=== PATIENT | female | born 1965 | race Caucasian/White ===

== ENCOUNTER 2019-04-14 19:12 | Emergency (ER) | payer BC ==
[2019-04-14] MEDS ORDERED: Baclofen 10 MG Tab PO ONE (20:17)
[2019-04-14] MEDS ORDERED: Acetaminophen/oxyCODONE 325-5 MG Tab PO ONE (20:17)
[2019-04-14] MEDS ORDERED: Ketorolac 60 MG/2 ML SDV IM ONE (20:17)
[2019-04-14] MEDS ORDERED: HYDROmorphone 1 MG/ML Syringe IM ONE (21:10)
--- NOTE | 2019-04-14 21:52 | EDM.PDOC ---
ED HPI GENERAL MEDICAL PROBLEM - General Chief Complaint: Back Pain or Injury Stated Complaint: BACK PAIN AND RIGHT LEG Time Seen by Provider: 04/14/19 19:40 Source of Information: Reports: Patient History Limitations: Reports: No Limitations - History of Present Illness INITIAL COMMENTS - FREE TEXT/NARRATIVE: pt arrived with severe [pain in the lower back with pain radiating down the rt leg. She is having severe muscle spasms in the leg. She has not been able to get comfortable. She did not have a definite injury. Onset: Gradual, Other ( last several days) Duration: Day(s): Location: Reports: Back, Lower Extremity, Right Associated Symptoms: Reports: No Other Symptoms - Related Data Allergies Allergy/AdvReac Type Severity Reaction Status Date / Time adhesive tape Allergy Hives Verified 04/14/19 19:37 Home Meds: Home Meds Hydrochlorothiazide [Microzide] 12.5 mg PO DAILY 04/14/19 [History] Metoprolol Succinate [Toprol Xl] 200 mg PO DAILY 04/14/19 [History] Rosuvastatin [Crestor] 10 mg PO BEDTIME 04/14/19 [History] amLODIPine [Norvasc] 5 mg PO DAILY 04/14/19 [History] metFORMIN [Glucophage] 500 mg PO BID 04/14/19 [History] Past Medical History Genitourinary History: Reports: Renal Calculus 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: Reports: - Past Surgical History Female Surgical History: Reports: Section, Ureteral Stent Oncologic Surgical History: Reports: Biopsy of Breast Social & Family History - Tobacco Use Smoking Status *Q: Never Smoker - Recreational Drug Use Recreational Drug Use: No ED ROS GENERAL - Review of Systems Review Of Systems: See Below Constitutional: Reports: No Symptoms HEENT: Reports: No Symptoms Respiratory: Reports: No Symptoms Cardiovascular: Reports: No Symptoms Endocrine: Reports: No Symptoms GI/Abdominal: Reports: No Symptoms : Reports: No Symptoms Skin: Reports: Other ( severe pain in the rt lower lumbar area. The pain comes over the buttock and then moves forward on the thigh. She is having alot of spasm in the thigh. ) Neurological: Reports: Other ( tingling is present. ) Psychiatric: Reports: Anxiety ED EXAM,LOWER BACK PAIN/INJURY - Physical Exam Exam: See Below Text/Narrative:: pt arrived very uncomfortable with severe pain in the rt lower back radiating down the rt leg. She is having severe muscle spam Exam Limited By: No Limitations General Appearance: Alert, Anxious Ears: Normal TMs Nose: Normal Inspection Throat/Mouth: Normal Inspection Head: Atraumatic Neck: Normal Inspection Respiratory/Chest: No Respiratory Distress Cardiovascular: Regular Rate, Rhythm GI/Abdominal: Soft, Non-Tender (Female) Exam: Deferred Rectal (Female) Exam: Deferred Back Exam: Normal Inspection Extremities: Other (pain is radiating down the rt buttock and then it moves forward to the front of the thigh. She is having severe muscle spasms. She has a positive straight leg raising sign. She has a very good pulse. She has normal great toe strenghth. ) Neurological: Alert Psychiatric: Anxious Course - Vital Signs Last Recorded V/S: Last Vital Signs Temp 36.9 C 04/14/19 19:38 Pulse 85 04/14/19 19:38 Resp 16 04/14/19 19:38 BP 177/86 H 04/14/19 19:38 Pulse Ox 95 04/14/19 19:38 - Orders/Labs/Meds Meds: Medications Discontinued Medications Generic Name Dose Route Start Last Admin Trade Name Rafaelq PRN Reason Stop Dose Admin Baclofen 10 mg 04/14/19 20:17 04/14/19 20:24 Lioresal PO 04/14/19 20:18 10 mg ONETIME ONE Administration Hydromorphone HCl 1 mg 04/14/19 21:10 04/14/19 21:16 Dilaudid IM 04/14/19 21:11 1 mg ONETIME ONE Administration Ketorolac Tromethamine 60 mg 04/14/19 20:17 04/14/19 20:24 Toradol IM 04/14/19 20:18 60 mg ONETIME ONE Administration Oxycodone/Acetaminophen 1 tab 04/14/19 20:17 04/14/19 20:24 Percocet 325-5 Mg PO 04/14/19 20:18 1 tab ONETIME ONE Administration - Re-Assessments/Exams Free Text/Narrative Re-Assessment/Exam: 04/14/19 22:02 pt was given torodol 60mg im, percocet 5/325 and dilaudid 1 mg im, She was given baclofeen 10mg . Pt is much mor relaxed and comfortable. Departure - Departure Time of Disposition: 21:50 Disposition: Home, Self-Care 01 Clinical Impression: Lumbar back pain with radiculopathy affecting right lower extremity - Discharge Information Referrals: Hortencia Becerril MD [Primary Care Provider] - Forms: ED Department Discharge Care Plan Goals: ice or heat to the area, cool packto the areaover the buttock, rtc for a MRI of the luumbar spine, beclofen 10 mg tid for muscle relaxation, percocet 5.325 q6h prn for severe pain #12 , motrin 600mg tid, with the use of the percocet constipation can occur-- use prunes and miralax to avoid constipation.
== END 2019-04-14 22:26 | disposition home or self-care (01) ==
LOC: JP.ED 19:12
DX: M54.16 Radiculopathy, lumbar region (principal); Z79.84 Long term (current) use of oral hypoglycemic drugs; Z91.09 Other allergy status, other than to drugs and biological substances
CPT/HCPCS: 96372; 99282; A9270; J1170; J1885

== ENCOUNTER 2022-10-13 16:27 | Emergency (ER) | payer BC ==
[2022-10-13] MEDS ORDERED: Metoclopramide 10 MG/2 ML SDV IVPUSH ONE (17:14)
[2022-10-13] MEDS ORDERED: Sodium Chloride 0.9% 1,000 ML IV SCH (17:15)
== END 2022-10-13 18:29 | disposition home or self-care (01) ==
LOC: JP.ED 16:27
DX: N30.00 Acute cystitis without hematuria (principal); B34.9 Viral infection, unspecified; E78.00 Pure hypercholesterolemia, unspecified; I10 Essential (primary) hypertension; E11.9 Type 2 diabetes mellitus without complications; Z91.048 Other nonmedicinal substance allergy status; Z79.899 Other long term (current) drug therapy; Z79.84 Long term (current) use of oral hypoglycemic drugs
CPT/HCPCS: 96361; 96374; 99283; J2765; J7030